=== PATIENT | male | born 1955 | race Caucasian/White ===

== ENCOUNTER 2022-08-10 05:53 | Day surgery (SDC) | payer OTHER ==
[~2022-08-10] VITALS: Ht 182.9 cm; Wt 116.8 kg
[~2022-08-10 05:53] MED LIST: ALBU2.5V5; ALLO100 PO; AMLO5 PO; CILOSTAZOL50 M1 PO; CLOP75 PO; Crestor40 MG PO; DICLOFENAC SOD100 GM TOP; EZET10 PO; FAMO20 PO; FERSU300 PO; HYDACE5 PO; HYDCHL25; HYDCHL50 PO; IRON SUPPLEMENT; LISI20 PO; Lisinopril2.5 MG; METO25 PO; PANT40 PO; PRALUENT P75 MG/1 ML SQ; PROAIR DIGIHAL90 MCG IH; ROSU10TA PO; ROSU5; TAMS.4ER PO; TOBR.3OPSO OD; TOBR.3OPSO RIGHTEYE; XARELTO20 MG
[2022-08-10] MEDS ORDERED: MOME220I INH (06:28)
[2022-08-10] MEDS ORDERED: STIOLTO RESPIMAT4 G1 INH (06:29)
--- NOTE | 2022-08-10 07:39 | NUR ---
08/10/22 [address] CAMPBELL. SEE ANESTHESIA RECORDS
--- NOTE | 2022-08-10 08:40 | NUR ---
PT A&OX4, NO NAUSEA OR PAIN, VSS. PT TOLERATING PO FLUIDS. PT MEETS DISCHARGE CRITERIA. Discharge instructions reviewed with patient. Patient verbalizes understanding. Copy given to patient to take home. Discharged via wheelchair to private car for ride home.
== END 2022-08-10 08:42 | disposition home or self-care (01) ==
LOC: ORSCMMR 05:53 → ORD 07:30 → ORSCMMR 08:42
PROVIDERS: Surgery
PROC: 0DBN8ZX Excision of Sigmoid Colon, Via Natural or Artificial Opening Endoscopic, Diagnostic (ICD-10-PCS; principal; 2022-08-10 07:30)
DX: R19.4 Change in bowel habit (principal); D50.0 Iron deficiency anemia secondary to blood loss (chronic); I10 Essential (primary) hypertension; I25.10 Atherosclerotic heart disease of native coronary artery without angina pectoris; E78.5 Hyperlipidemia, unspecified; J45.909 Unspecified asthma, uncomplicated; N40.0 Benign prostatic hyperplasia without lower urinary tract symptoms; E66.9 Obesity, unspecified; Z68.35 Body mass index [BMI] 35.0-35.9, adult; Z79.02 Long term (current) use of antithrombotics/antiplatelets; Z79.899 Other long term (current) drug therapy
CPT/HCPCS: 88305; J2001; J2704; J7120

== ENCOUNTER 2025-02-09 17:14 | Inpatient (IN) | payer OTHER ==
[~2025-02-09] VITALS: Ht 182.9 cm; Wt 111.7 kg
[~2025-02-09 17:14] MED LIST changes: +AMLO10 PO; +MOME220I INH; +STIOLTO RESPIMAT4 G1 INH
[2025-02-09 18:09] LABS: BASOPHILS ABSOLUTE AUTO 0.05 K/mm3 (0.00-0.23); BASOPHILS PERCENT AUTO 1 % (0-2); EOSINOPHILS ABSOLUTE AUTO 0.10 K/mm3 (0.00-0.68); EOSINOPHILS PERCENT AUTO 1 % (0-6); Hematocrit 41.2 % (37.0-53.0); Hemoglobin 14.1 g/dL (13.5-17.5); IMMATURE GRAN ABSOLUTE AUTO 0.05 K/mm3 (0.00-0.10); IMMATURE GRAN PERCENT AUTO 1 % (0-1); LYMPHOCYTES ABSOLUTE AUTO 0.75 K/mm3 (0.84-5.20); LYMPHOCYTES PERCENT AUTO 7 % (21-46); MONOCYTES ABSOLUTE AUTO 1.31 K/mm3 (0.16-1.47); MONOCYTES PERCENT AUTO 13 % (4-13); Mean Corpuscular HGB Conc 34.2 g/dL (31.5-36.5); Mean Corpuscular Volume 81 fL (80-100); NEUTROPHILS ABSOLUTE AUTO 8.06 K/mm3 (1.96-9.15); NEUTROPHILS PERCENT AUTO 78 % (41-73); NRBC ABSOLUTE 0.00 K/mm3 (0.00-0.02); NRBC Auto 0.0 /100 WBC (0.0-0.2); Platelet Count 241 K/mm3 (150-400); RDW Coefficient Variation 14.3 % (11.7-14.2); RDW Standard Deviation 41.9 fL (35.1-46.3)
[2025-02-09 18:37] LABS: Magnesium, Blood 1.7 mg/dL (1.6-2.4)
[2025-02-09 18:38] LABS: Alanine Aminotransfer (ALT/SGP 54.0 U/L (12-78); Albumin, Blood 3.5 g/dL (3.4-5.0); Albumin/Globulin Ratio 1.0 (0.8-1.8); Anion Gap 11.0 mmol/L (3-11); Aspartate Aminotrans (AST/SGOT 42.0 U/L (12-37); Bilirubin, Total 0.6 mg/dL (0.1-1.0); Blood Urea Nitrogen 28.0 mg/dL (8-24); CO2, Blood 25.0 mmol/L (21-32); Calcium, Blood 9.2 mg/dL (8.5-10.1); Chloride, Blood 104.0 mmol/L (98-108); Creatinine, Blood 0.91 mg/dL (0.60-1.20); Globulin, Blood 3.6 g/dL (2.2-4.0); Glucose, Blood 111.0 mg/dL (70-99); Potassium, Blood 3.5 mmol/L (3.5-5.5); Sodium, Blood 136.0 mmol/L (136-145); Total Protein, Blood 7.1 g/dL (6.4-8.2)
[2025-02-09] MEDS ORDERED: Albuterol 2.5 MG/3 ML VIAL INH PRN (20:10)
[2025-02-09] MEDS ORDERED: Ondansetron HCl 2 MG / ML 2ML Vial IV PRN (20:10)
[2025-02-09] MEDS ORDERED: ZESTORETIC 20-121 EA PO (20:31)
[2025-02-09] MEDS ORDERED: Doxycycline Hyc20 MG PO (20:32)
[2025-02-09] MEDS ORDERED: POTA10T PO (20:32)
[2025-02-09] MEDS ORDERED: PRED20 PO (20:33)
[2025-02-09] MEDS ORDERED: FURO20 PO (20:33)
[2025-02-09] MEDS ORDERED: FLUO.1OPSU BOTHEYES (20:34)
[2025-02-09] MEDS ORDERED: [UNRECOGNIZED DRUG - OTHER] BOTHEYES (20:35)
[2025-02-09 20:53] LABS: Thyroid Stimulating Hormone 0.749 uIU/mL (0.360-4.800)
[2025-02-09] MEDS ORDERED: Diazepam 5 MG / ML 2ML SYR IV ONE (21:00)
[2025-02-09 22:06] VITALS: BP 141/76
[2025-02-09 22:06] LABS: U Amphetamine Screen Not Detected; U Barbituate Screen Not Detected; U Benzodiazapine Screen Not Detected; U Buprenorphine Screen Not Detected; U Cannabinoids Screen Not Detected; U Cocaine Screen Not Detected; U Methadone Screen Not Detected; U Methamphetamine Screen Not Detected; U Opiates Screen Not Detected; U Oxycodone Screen Not Detected; U Phencyclidine Screen Not Detected
[2025-02-09] MEDS ORDERED: CYCL0.05OP BOTHEYES (22:58)
[2025-02-09] MEDS ORDERED: CLOP75 PO (22:59)
[2025-02-09] MEDS ORDERED: ERYT1OIN BOTHEYES (23:02)
[2025-02-09] MEDS ORDERED: FLUT1DIS8 INH (23:04)
[2025-02-09] MEDS ORDERED: MULTI-VITAMIN1 EAC2 PO (23:06)
[2025-02-09] MEDS ORDERED: FISH OIL 1,0001 EA10 PO (23:10)
[2025-02-09] MEDS ORDERED: VALA500 PO (23:14)
[2025-02-09 23:45] VITALS: BP 136/68
[2025-02-10] VITALS (7 sets, daily range): BP systolic 102–143; BP diastolic 50–104
[2025-02-10 03:26] LABS: Hematocrit 40.6 % (37.0-53.0); Hemoglobin 13.6 g/dL (13.5-17.5); Mean Corpuscular HGB Conc 33.5 g/dL (31.5-36.5); Mean Corpuscular Volume 82 fL (80-100); NRBC ABSOLUTE 0.00 K/mm3 (0.00-0.02); NRBC Auto 0.0 /100 WBC (0.0-0.2); Platelet Count 237 K/mm3 (150-400); RDW Coefficient Variation 14.5 % (11.7-14.2); RDW Standard Deviation 42.0 fL (35.1-46.3)
[2025-02-10] MEDS ORDERED: TIOT18 INH (03:40)
[2025-02-10] MEDS ORDERED: WIXELA 500-501 EAC1 INH ×2 (03:41→03:42)
[2025-02-10 03:52] LABS: Alanine Aminotransfer (ALT/SGP 48.0 U/L (12-78); Albumin, Blood 3.1 g/dL (3.4-5.0); Albumin/Globulin Ratio 0.9 (0.8-1.8); Anion Gap 10.0 mmol/L (3-11); Aspartate Aminotrans (AST/SGOT 32.0 U/L (12-37); Bilirubin, Total 0.6 mg/dL (0.1-1.0); Blood Urea Nitrogen 22.0 mg/dL (8-24); CO2, Blood 26.0 mmol/L (21-32); Calcium, Blood 8.2 mg/dL (8.5-10.1); Chloride, Blood 103.0 mmol/L (98-108); Creatinine, Blood 0.99 mg/dL (0.60-1.20); Globulin, Blood 3.6 g/dL (2.2-4.0); Glucose, Blood 109.0 mg/dL (70-99); Magnesium, Blood 1.3 mg/dL (1.6-2.4); Potassium, Blood 3.3 mmol/L (3.5-5.5); Sodium, Blood 136.0 mmol/L (136-145); Total Protein, Blood 6.7 g/dL (6.4-8.2)
--- NOTE | 2025-02-10 04:19 | NUR ---
PHYSICIAN COMMUNICATION CONTACTED PEDIATRIC HOSPITALIST RESIDENT THIS MORNING TO NOTIFY HER THAT THE PATIENT HAS BEEN HAVING AN INCREASED AMOUNT OF PVC'S THIS MORNING WITH MULTIPLE RUNS OF VTACH. REPORTED MORNING LABS TO HER, POTASSIUM 3.3, CALCIUM 8.2, AND MAGNESIUM 1.3. DR FRANCIS TO INPUT ORDERS.
[2025-02-10] MEDS ORDERED: Mag Sulfate 1 GM/D5% 100ML 100 ML IV STA (04:28)
[2025-02-10] MEDS ORDERED: Potassium Chl 20MEQ/Water100ML 100 ML IV STA (04:28)
--- NOTE | 2025-02-10 05:44 | NUR ---
SHIFT SUMMARY PATIENT ARRIVED TO PCU 02 VIA STRETCHER. HE IS ALERT AND ORIENTED X4, ABLE TO TRANSFER INDEPENDENTLY. PITTING EDEMA NOTED ON BILATERAL LOWER EXTREMITES. PATIENT REPORTS SHORTNESS OF BREATH, ESPECIALLY WHEN LAYING FLAT AND WITH ACTIVITY. ON ROOM AIR WITH SPO2 >90%. BLOOD PRESSURE STABLE. WILL CONTINUE TO MONITOR. CALL LIGHT WITHIN REACH.
[2025-02-10] MEDS ORDERED: Peg 400/Hypromellose/Glycerin 15 DROP/ML BTL BOTHEYES PRN (06:55)
[2025-02-10] MEDS ORDERED: Magnesium Sul 4 GM/Water100 ML 100 ML IV ONE (07:10)
[2025-02-10] MEDS ORDERED: Enoxaparin 40 MG/0.4 ML SYR SC SCH (09:00)
[2025-02-10 12:32] LABS: Anion Gap 4.0 mmol/L (3-11); Blood Urea Nitrogen 21.0 mg/dL (8-24); CO2, Blood 28.0 mmol/L (21-32); Calcium, Blood 8.4 mg/dL (8.5-10.1); Chloride, Blood 102.0 mmol/L (98-108); Creatinine, Blood 0.94 mg/dL (0.60-1.20); Glucose, Blood 117.0 mg/dL (70-99); Magnesium, Blood 2.7 mg/dL (1.6-2.4); Phosphorus, Blood 3.0 mg/dL (2.5-4.9); Potassium, Blood 3.8 mmol/L (3.5-5.5); Sodium, Blood 130.0 mmol/L (136-145)
--- NOTE | 2025-02-10 15:52 | NUR ---
Rodolfo (pt) is awake and alert sitting upright in bed. Facilitated an update. Pt is expecting to be discharged soon and is in good spirits. Spiritual assessment conducted. Pt's is oriental orthodox and he describes himself as religion. His daughter recovered from a brain tumor and since then "things have been different around the house," referring to a greater presence of god in his family's life. Provided encouragement to pt and prayed with him. Pt thanked me for the visit and prayer.
--- NOTE | 2025-02-10 16:33 | NUR ---
SHIFT SUMMARY. SHIFT HAS GONE WELL OVERALL. AOX4, PLEASANT, COOPERATIVE, ABLE TO MAKE NEEDS KNOWN. INDEPENDENT TO BATHROOM, ALL OUTPUT CHARTED APPROPRIATELY. VITALS STABLE THROUGHOUT SHIFT. DENIES CHEST PAIN/PRESSURE. CONTINUES TO RUN SINUS W/PVC/BIGEMINY ON TELE, MADE AWARE THIS MORNING. HAS REMAINED ON ROOM AIR THROUGHOUT SHIFT. VERY COMPLIANT WITH FLUID RESTRICTION, ALL INPUT CHARTED APPROPRIATELY. SHIFT OTHERWISE UNREMARKABLE. BED LOCKED IN LOWEST POSITION. CALL LIGHT WITHIN REACH.
--- NOTE | 2025-02-10 17:50 | NUR ---
NOTIFIED BY MANAGER REVIEW THAT PT WAS AGAIN CHANGING RHYTHMS AND THROWING MORE PVCs ON TELE THAN NORMAL SINUS BEATS. NOTIFIED DR. GOMEZ WHO ORDERED EKG. PERFORMED AND SHARED RESULTS WITH DR. GOMEZ WHO DIRECTED TO GIVE 2100 METOPROLOL EARLY. PT REMAINS ASYMPTOMATIC. CONTINUING TO MONITOR.
--- NOTE | 2025-02-10 19:32 | NUR ---
PHYSICIAN COMMUNICATION CONTACTEDON CALL RESIDENT, DR FRANCIS, TO NOTIFY HER THAT THE PATIENT IS COMPLAINING OF A HEADACHE AND FEELING BLOATED AFTER EATING HIS DINNER AND NO PRN'S TO GIVE HIM. DR FRANCIS TO INPUT ORDERS.
[2025-02-11 04:58] VITALS: BP 122/59
--- NOTE | 2025-02-11 05:28 | NUR ---
SHIFT SUMMARY PATIENT ALERT AND ORIENTED X4. MEDICATED PER EMAR FOR HEADACHE AND "BLOATING" WHICH BOTH RESOLVED. HAD NO COMPLAINTS OF CHEST PAIN. SHORTNESS OF BREATH NOTED WITH EXERTION, ON ROOM AIR WITH SPO2 >90%. VITAL SIGNS STABLE. WILL CONTINUE TO MONITOR. CALL LIGHT WITHIN REACH.
[2025-02-11 05:55] LABS: BASOPHILS ABSOLUTE AUTO 0.03 K/mm3 (0.00-0.23); BASOPHILS PERCENT AUTO 0 % (0-2); EOSINOPHILS ABSOLUTE AUTO 0.14 K/mm3 (0.00-0.68); EOSINOPHILS PERCENT AUTO 2 % (0-6); Hematocrit 42.2 % (37.0-53.0); Hemoglobin 14.1 g/dL (13.5-17.5); IMMATURE GRAN ABSOLUTE AUTO 0.03 K/mm3 (0.00-0.10); IMMATURE GRAN PERCENT AUTO 0 % (0-1); LYMPHOCYTES ABSOLUTE AUTO 0.73 K/mm3 (0.84-5.20); LYMPHOCYTES PERCENT AUTO 11 % (21-46); MONOCYTES ABSOLUTE AUTO 1.03 K/mm3 (0.16-1.47); MONOCYTES PERCENT AUTO 15 % (4-13); Mean Corpuscular HGB Conc 33.4 g/dL (31.5-36.5); Mean Corpuscular Volume 83 fL (80-100); NEUTROPHILS ABSOLUTE AUTO 4.73 K/mm3 (1.96-9.15); NEUTROPHILS PERCENT AUTO 71 % (41-73); NRBC ABSOLUTE 0.00 K/mm3 (0.00-0.02); NRBC Auto 0.0 /100 WBC (0.0-0.2); Platelet Count 231 K/mm3 (150-400); RDW Coefficient Variation 14.5 % (11.7-14.2); RDW Standard Deviation 43.4 fL (35.1-46.3)
[2025-02-11 06:29] LABS: Anion Gap 9.0 mmol/L (3-11); Blood Urea Nitrogen 18.0 mg/dL (8-24); CO2, Blood 27.0 mmol/L (21-32); Calcium, Blood 8.0 mg/dL (8.5-10.1); Chloride, Blood 103.0 mmol/L (98-108); Creatinine, Blood 1.02 mg/dL (0.60-1.20); Glucose, Blood 126.0 mg/dL (70-99); Magnesium, Blood 2.0 mg/dL (1.6-2.4); Potassium, Blood 3.8 mmol/L (3.5-5.5); Sodium, Blood 135.0 mmol/L (136-145)
--- NOTE | 2025-02-11 07:41 | NUR ---
HOLDING PLETAL. Verified with pharmacy that it is contraindicated with any severity of heart failure. Will notify physician during rounds.
[2025-02-11 08:00] VITALS: BP 146/98
--- NOTE | 2025-02-11 08:29 | NUR ---
Pt states this morning that he is having some difficulty breathing, worse than yesterday. States it is mild but he is noticing it, with mild activity. No wheezing nor crackles auscultated in anterior and posterior lung wiseman. States that his edema is much improved. Noted 1+ edema pretibial and around his ankles. He states good diuresis since taking IV lasix. Noted d-dimer 1.45 drawn at 0700 this morning.
--- NOTE | 2025-02-11 08:32 | NUR ---
Dr. Swartz is on her way to see the patient.
--- NOTE | 2025-02-11 10:31 | NUR ---
Spoke with Dr. Merino this morning regarding concerns of Pletal with dx of heart failure, potassium 3.8 and without ordered potassium supplement (diuresis ongoing), elevated d dimer and pt's c/o shortness of breath today. Also notified her the pt declined his tamsulosin this am as he does not take it at home since having his "prostate removed" he says. Waiting at this time to talk with the attending MD. No new orders have been received yet. Pt is alert, oriented and has had about 1600 cc urine out so far. states that perhaps his breathing is a littel better than this morning.
--- NOTE | 2025-02-11 10:35 | NUR ---
Pt is asking for something for anxiety. Noted order for Atarax active on eMAR
[2025-02-11 11:10] VITALS: BP 128/71
--- NOTE | 2025-02-11 11:32 | NUR ---
Dr Yoon here to see the patient. Discussed potassium supplement, lovenox, d dimer, Pletal, and flomax. Pt seemed reassured to hear the plan and understand a little bit better about his condition. Pt verbalized understanding of plan to increase the lasix to twice a day, keep to 1800 fluid restriction now and at home, and a hopeful discharge home tomorrow.
--- NOTE | 2025-02-11 13:31 | NUR ---
Pt is asking for anti-anxiety medication; states that the atarax given around 1030 this morning did not seem to help at all. States that he is also having worsening shortness of breath, cannot lie down and when he starts to fall asleep he jerks awake due to his breathing difficulty. Call to Dr. Yoon to report. Awaiting CT r/o PE and antianxiety med order.
--- NOTE | 2025-02-11 13:47 | NUR ---
Pt went to imaging for CT to r/o PE.
--- NOTE | 2025-02-11 14:25 | NUR ---
pt returned from CT and was given prn ativan for anxiety. Also had troponin drawn. He remains able to walk around the room but has not noticed any relief from his mild dyspnea.
[2025-02-11 16:15] VITALS: BP 144/83
--- NOTE | 2025-02-11 16:16 | NUR ---
pt states that since taking the ativan he feels much better. Reports that his breathing is also feeling better.
[2025-02-11] MEDS ORDERED: Tiotropium Bromide 2.5 MCG/ACT MIST INHAL (10 ACT/4 GM) INH SCH (18:05)
[2025-02-11] MEDS ORDERED: Albuterol HFA200 ACT/6.7 GM INH INH PRN (18:05)
[2025-02-11] MEDS ORDERED: Formoterol/Mometasone MDI 5/200 mcg 13 GM INH SCH (18:05)
[2025-02-11 20:23] VITALS: BP 147/71
--- NOTE | 2025-02-11 21:34 | NUR ---
ASSUMPTION OF CARE ASSUMED PT'S CARE AT 1900.PT SITTING UP IN CHAIR WITH BLE ELEVATED.BEDSIDE REPORT COMPLETED.PT DENIES PAIN,C/O MILD SOB AT REST.PLAN OF CARE REVIEWED.PT DENIES FURTHER NEEDS AT THIS TIME.CALL LIGHT AND PT'S ITEMS WITHIN REACH.MONITORING ONGOING PER CAREPLAN.
[2025-02-12] VITALS (7 sets, daily range): BP systolic 126–157; BP diastolic 66–80
[2025-02-12 04:08] LABS: BASOPHILS ABSOLUTE AUTO 0.04 K/mm3 (0.00-0.23); BASOPHILS PERCENT AUTO 1 % (0-2); EOSINOPHILS ABSOLUTE AUTO 0.12 K/mm3 (0.00-0.68); EOSINOPHILS PERCENT AUTO 2 % (0-6); Hematocrit 39.9 % (37.0-53.0); Hemoglobin 13.5 g/dL (13.5-17.5); IMMATURE GRAN ABSOLUTE AUTO 0.03 K/mm3 (0.00-0.10); IMMATURE GRAN PERCENT AUTO 1 % (0-1); LYMPHOCYTES ABSOLUTE AUTO 0.71 K/mm3 (0.84-5.20); LYMPHOCYTES PERCENT AUTO 11 % (21-46); MONOCYTES ABSOLUTE AUTO 1.08 K/mm3 (0.16-1.47); MONOCYTES PERCENT AUTO 17 % (4-13); Mean Corpuscular HGB Conc 33.8 g/dL (31.5-36.5); Mean Corpuscular Volume 83 fL (80-100); NEUTROPHILS ABSOLUTE AUTO 4.30 K/mm3 (1.96-9.15); NEUTROPHILS PERCENT AUTO 69 % (41-73); NRBC ABSOLUTE 0.00 K/mm3 (0.00-0.02); NRBC Auto 0.0 /100 WBC (0.0-0.2); Platelet Count 215 K/mm3 (150-400); RDW Coefficient Variation 14.5 % (11.7-14.2); RDW Standard Deviation 43.7 fL (35.1-46.3)
[2025-02-12 04:44] LABS: Alanine Aminotransfer (ALT/SGP 38.0 U/L (12-78); Albumin, Blood 2.8 g/dL (3.4-5.0); Albumin/Globulin Ratio 0.8 (0.8-1.8); Anion Gap 9.0 mmol/L (3-11); Aspartate Aminotrans (AST/SGOT 29.0 U/L (12-37); Bilirubin, Total 0.3 mg/dL (0.1-1.0); Blood Urea Nitrogen 14.0 mg/dL (8-24); CO2, Blood 27.0 mmol/L (21-32); Calcium, Blood 7.8 mg/dL (8.5-10.1); Chloride, Blood 105.0 mmol/L (98-108); Creatinine, Blood 0.88 mg/dL (0.60-1.20); Globulin, Blood 3.5 g/dL (2.2-4.0); Glucose, Blood 106.0 mg/dL (70-99); Magnesium, Blood 1.7 mg/dL (1.6-2.4); Potassium, Blood 3.6 mmol/L (3.5-5.5); Sodium, Blood 137.0 mmol/L (136-145); Total Protein, Blood 6.3 g/dL (6.4-8.2)
--- NOTE | 2025-02-12 06:36 | NUR ---
PT MONITORED DURING THE SHIFT.PT SLEPT IN BED WITH HOB ELEVATED.PRN ATARAX GIVEN X1 FOR ANXIETY.PT MAINTAINED OXYGEN SATURATION >93% ON RA.PT AWAKE AT THIS TIME SITTING UP IN CHAIR,PT C/O SOB.RESPIRATORY THERAPIST NOTIFIED THAT PT REQUESTING PRN RESCUE INHALER.PT DENIES PAIN,DENIES FURTHER NEEDS.CALL LIGHT AND PT'S ITEMS WITHIN REACH.MONITORING ONGOING PER CAREPLAN.
[2025-02-12] MEDS ORDERED: Magnesium Sulf 2 GM/Water 50ML 50 ML IV STA ×2 (06:41→08:09)
[2025-02-12] MEDS ORDERED: Magnesium Sulf 2 GM/Water 50ML 50 ML IV SCH (06:50)
[2025-02-12] MEDS ORDERED: Magnesium Sul 4 GM/Water100 ML 100 ML IV ONE (07:10)
[2025-02-12] MEDS ORDERED: NS 250 ML IV PRN (07:55)
--- NOTE | 2025-02-12 18:45 | NUR ---
SUMMARY PT CONTINUES TO HAVE SOB AT REST AND WITH EXERTION. LUNGS CLEAR/ DIM BASES. IV DIURETICS SCHEDULED. PRN ATIVAN AND ATARAX AVAILABLE FOR ANXIETY, BOTH GIVEN X1 THIS SHIFT. PT COMPLIANT WITH FLUID RESTRICITON. ABLE TO MAKE NEEDS KNOWN. INDEPENDENT IN ROOM. TOOK A WALK IN THE [place] TODAY.
--- NOTE | 2025-02-12 21:22 | NUR ---
ASSUMED CARE AT APROX 1900 PT IS A+O X4 ABLE TO MAKE NEEDS KNOW, IDEPENT IN THE ROOM. VOIDING IN THE URINAL IDEPENT. FLUID REST OF 1800 MLS, MONITORING OUTPUT. PT EXPRESSED HAVING ISSUES TAKING A DEEP BREATH OXYGEN SATURATION >93% BUT PLACED ON 2L FOR COMFORT. LUNG SOUNDS CLEAR BUT DIM IN BASES. MEDICATED WITH PRN'S FOR A KAUFFMAN THAT HE STATES IS BETTER NOW. PT IS NOW RESTING IN BED, CALL LIGHT IN REACH.
[2025-02-13 04:02] VITALS: BP 142/78
[2025-02-13 04:22] LABS: BASOPHILS ABSOLUTE AUTO 0.04 K/mm3 (0.00-0.23); BASOPHILS PERCENT AUTO 1 % (0-2); EOSINOPHILS ABSOLUTE AUTO 0.18 K/mm3 (0.00-0.68); EOSINOPHILS PERCENT AUTO 3 % (0-6); Hematocrit 43.6 % (37.0-53.0); Hemoglobin 14.6 g/dL (13.5-17.5); IMMATURE GRAN ABSOLUTE AUTO 0.02 K/mm3 (0.00-0.10); IMMATURE GRAN PERCENT AUTO 0 % (0-1); LYMPHOCYTES ABSOLUTE AUTO 0.76 K/mm3 (0.84-5.20); LYMPHOCYTES PERCENT AUTO 12 % (21-46); MONOCYTES ABSOLUTE AUTO 1.14 K/mm3 (0.16-1.47); MONOCYTES PERCENT AUTO 18 % (4-13); Mean Corpuscular HGB Conc 33.5 g/dL (31.5-36.5); Mean Corpuscular Volume 82 fL (80-100); NEUTROPHILS ABSOLUTE AUTO 4.34 K/mm3 (1.96-9.15); NEUTROPHILS PERCENT AUTO 67 % (41-73); NRBC ABSOLUTE 0.00 K/mm3 (0.00-0.02); NRBC Auto 0.0 /100 WBC (0.0-0.2); Platelet Count 232 K/mm3 (150-400); RDW Coefficient Variation 14.6 % (11.7-14.2); RDW Standard Deviation 43.5 fL (35.1-46.3)
[2025-02-13 04:51] LABS: Alanine Aminotransfer (ALT/SGP 42.0 U/L (12-78); Albumin, Blood 3.0 g/dL (3.4-5.0); Albumin/Globulin Ratio 0.8 (0.8-1.8); Anion Gap 8.0 mmol/L (3-11); Aspartate Aminotrans (AST/SGOT 32.0 U/L (12-37); Bilirubin, Total 0.3 mg/dL (0.1-1.0); Blood Urea Nitrogen 17.0 mg/dL (8-24); CO2, Blood 27.0 mmol/L (21-32); Calcium, Blood 8.3 mg/dL (8.5-10.1); Chloride, Blood 105.0 mmol/L (98-108); Creatinine, Blood 1.06 mg/dL (0.60-1.20); Globulin, Blood 3.9 g/dL (2.2-4.0); Glucose, Blood 111.0 mg/dL (70-99); Potassium, Blood 4.1 mmol/L (3.5-5.5); Sodium, Blood 136.0 mmol/L (136-145); Total Protein, Blood 6.9 g/dL (6.4-8.2)
--- NOTE | 2025-02-13 05:26 | NUR ---
NOC SHIFT SUMMARY PT IS A+O X4 ABLE TO MAKE NEEDS KNOWN, INDEPENT IN THE ROOM USES CALL LIGHT APPT. VOIDING IN URINAL. PT WAS ABLE TO REST ON AND OFF T/O THE NIGHT IN BETWEEN CARES. PT IS MEDICAL STATUS W/ TELE. PT ANXIETY WELL CONTROLLED AFTER PRN MEDICATION GIVEN AT START OF SHIFT. PT DENIES NEEDS AT THIS TIME. CALL LIGHT IN REACH, PLAN OF CARE CONTINUES, CALL LIGHT IN REACH.
[2025-02-13 07:03] LABS: Magnesium, Blood 2.1 mg/dL (1.6-2.4)
[2025-02-13 07:42] VITALS: BP 130/77
[2025-02-13 11:06] VITALS: BP 139/69
[2025-02-13] MEDS ORDERED: FURO40 PO (14:31)
[2025-02-13] MEDS ORDERED: POTCHL20ER PO (14:31)
[2025-02-13] MEDS ORDERED: BUSPIRONE HCL7.5 M1 PO (14:32)
[2025-02-13] MEDS ORDERED: JARDIANCE10 MG PO (14:32)
[2025-02-13] MEDS ORDERED: Prinivil10 MG PO (14:33)
[2025-02-13] MEDS ORDERED: LORA.5 PO (14:33)
--- NOTE | 2025-02-13 16:00 | NUR ---
PT DISCHARGED TO HOME WITH DISCARGE ORDERS. DISCLOSED NEW MEDICATIONS AND DISCHARGE INSTRUCTIONS WITH THE PT AND THE , BOTH VERBALIZED UNDERSTANDING. PT WAS PROVIDED SPIROMETER AND INSTRUCTED OF USE, PT ABLE TO DEMONSTRATE. VITALS HAS BEEN STABLE HAD A COUPLE EPISODES OF ANXIETY MEDS PER EMAR GIVEN. VITALS HAS BEEN STABLE PT HAS BEEN INDEPENDENT IN THE ROOM. COMPLIANT WITH FLUID RESTRICTION. NO OTHER ISSUES ENCOUNTERED. ALL BELONGINGS SENT WITH THE PT. PRESCRIPTIONS SENT TO [facility]. ACCOMPANIED VIA WHEELCHAIR FOR TRANSPORT.
== END 2025-02-13 16:00 | disposition home or self-care (01) | DRG 280 ==
LOC: ER 17:14 → PCU 17:15
PROVIDERS: Emergency Medicine; Nurse Practitioner Acute Care; ADMIT Student in an Organized Health Care Education/Training Program
DX: I11.0 Hypertensive heart disease with heart failure (principal); I50.31 Acute diastolic (congestive) heart failure; I21.A1 Myocardial infarction type 2; I47.29 Other ventricular tachycardia; I35.0 Nonrheumatic aortic (valve) stenosis; I49.3 Ventricular premature depolarization; E78.5 Hyperlipidemia, unspecified; I73.9 Peripheral vascular disease, unspecified; F41.9 Anxiety disorder, unspecified; K44.9 Diaphragmatic hernia without obstruction or gangrene; J45.909 Unspecified asthma, uncomplicated; N40.0 Benign prostatic hyperplasia without lower urinary tract symptoms; I25.10 Atherosclerotic heart disease of native coronary artery without angina pectoris; E66.01 Morbid (severe) obesity due to excess calories; Z79.899 Other long term (current) drug therapy; Z87.19 Personal history of other diseases of the digestive system; Z96.651 Presence of right artificial knee joint; Z68.35 Body mass index [BMI] 35.0-35.9, adult
CPT/HCPCS: 36415; 71045; 71260; 76705; 80048; 80053; 82306; 82330; 83735; 83880; 84100; 84439; 84443; 84481; 84484; 85025; 85027; 85379; 93005; 93010; 93308; 93321; 94640; 94664; 94760; 96365; 96372; 96375; 96376; 99285-25; A9270; G0378; J1650; J1938; J3360; J3475; J3480; J7050; Q9967

== ENCOUNTER 2025-03-09 07:01 | Day surgery (SDC) | payer OTHER ==
[~2025-03-09] VITALS: Ht 182.9 cm; Wt 108.0 kg
[~2025-03-09 07:01] MED LIST changes: +BUSPIRONE HCL7.5 M1 PO; +CYCL0.05OP BOTHEYES; +Doxycycline Hyc20 MG PO; +ERYT1OIN BOTHEYES; +FISH OIL 1,0001 EA10 PO; +FLUO.1OPSU BOTHEYES; +FLUT1DIS8 INH; +FURO20 PO; +FURO40 PO; +JARDIANCE10 MG PO; +LORA.5 PO; +MULTI-VITAMIN1 EAC2 PO; +POTA10T PO; +POTCHL20ER PO; +PRED20 PO; +Prinivil10 MG PO; +TIOT18 INH; +VALA500 PO; +WIXELA 500-501 EAC1 INH; +ZESTORETIC 20-121 EA PO; +[UNRECOGNIZED DRUG - OTHER] BOTHEYES
[2025-03-09] MEDS ORDERED: Heparin Sodium 1000 Units/ML 10ML MDV ONE ×2 (07:23→09:14)
[2025-03-09] MEDS ORDERED: NS 250 ML IV ONE (07:23)
[2025-03-09] MEDS ORDERED: NS 1,000 ML IV ONE ×2 (07:23→07:49)
[2025-03-09] MEDS ORDERED: Verapamil HCL 2.5 MG/ML 2ML Injection ONE (07:23)
[2025-03-09 07:38] VITALS: BP 191/102
[2025-03-09] MEDS ORDERED: FISH OIL 1,0001 EA10 PO (07:48)
[2025-03-09] MEDS ORDERED: FentaNYL Citrate 50 MCG/ML 2 ML Injection ONE (07:49)
[2025-03-09] MEDS ORDERED: Midazolam HCl 1MG / ML 2ML Vial ONE (07:49)
[2025-03-09] MEDS ORDERED: WIXELA 500-501 EAC1 INH (07:50)
--- NOTE | 2025-03-09 09:59 | NUR ---
pt back to recovery from lab. pt a&o. pt given soda per request. radial site soft and non-tender per pt. no bleeding/hematoma.
[2025-03-09 10:32] VITALS: BP 161/72
[2025-03-09 10:45] VITALS: BP 153/72
[2025-03-09 11:30] VITALS: BP 103/51
[2025-03-09 11:45] VITALS: BP 102/53
--- NOTE | 2025-03-09 12:12 | NUR ---
RECEIVED REPORT EARLIER, SNACK AND DRINK BROUGHT, VSS. NO ACUTE CONCERNS, PULSES PROX/DISTAL AT SITE, INTACT. FAMILY ARRIVED, DISCUSS PLAN FOR D/C, DUE TO HEPARIN. RECENTLY AIR LET OUT OF SITE AND SOME OOZING NOTED, REINFLATED TO 6 CC. EALRIER DISCUSS D/C INSTRUCTIONS, F/U APPT WITH CONTACT FROM [employer]ION [employer]URE COMMENT[facility], ADVISED TO CALL IF NO CONTACT OVER NEXT WEEK, PENDING PROCEDURE. DISCUSSED MEDICATIONS AND RADIAL SITE CARE, DENIES QUESTIONS OR CONCNERS. VSS, D/C PENDING TR BAND AT PRESENT, FAMILY LEFT EARLIER.
[2025-03-09 13:00] VITALS: BP 119/63
--- NOTE | 2025-03-09 13:23 | NUR ---
TR BAND REMOVED, SITE INTACT, PLACED CLOTH DOT. NEW BRACE PLACED, NO CONCERNS PRIOR, FAMILY ARRIVED AND PATIENT TAKEN BY W/C, IV REMOVED, PATIENT DRESSED, BELONGINGS RETURNED, LEFT WITH FAMILY AT 1315, TAKEN BY THIS RN TO PATIENT ENTRANCE.
== END 2025-03-09 13:15 | disposition home or self-care (01) ==
LOC: MHTC 07:01
DX: I35.0 Nonrheumatic aortic (valve) stenosis (principal); R94.39 Abnormal result of other cardiovascular function study; I47.20 Ventricular tachycardia, unspecified; I25.810 Atherosclerosis of coronary artery bypass graft(s) without angina pectoris; I25.2 Old myocardial infarction; I73.9 Peripheral vascular disease, unspecified; I10 Essential (primary) hypertension; E78.5 Hyperlipidemia, unspecified; N40.0 Benign prostatic hyperplasia without lower urinary tract symptoms; Z79.02 Long term (current) use of antithrombotics/antiplatelets; Z79.899 Other long term (current) drug therapy; Z87.891 Personal history of nicotine dependence
CPT/HCPCS: 76937; 93459; 99152; 99153; C1769; C1887; C1894; J1644; J2250; J3010; J7030; J7050; Q9967